=== PATIENT | female | born 1960 | race Caucasian/White ===

== ENCOUNTER 2017-05-14 17:06 | Emergency (ER) | payer OTHER ==
[2017-05-14 18:23] VITALS: BP 123/63
--- NOTE | 2017-05-14 18:25 | UC ---
Throat Pain/Nasal Nigel HPI - HPI Summary HPI Summary: 56 YEAR OLD FEMALE PRESENTS WITH COMPLAINS OF RED EYES AND SORE THROAT. - History of Current Complaint Chief Complaint: UCRespiratory Stated Complaint: SORE THROAT Time Seen by Provider: 05/14/17 18:25 Hx Obtained From: Patient Onset/Duration: Sudden Onset Severity: Moderate Pain Scale Used: 0-10 Numeric - 0 Cough: Nonproductive Associated Signs & Symptoms: Positive: Negative Related History: Seasonal Allergies - Epiglottits Risk Factors Epiglottis Risk Factors: Negative - Allergies/Home Medications Allergies/Adverse Reactions: Allergies Allergy/AdvReac Type Severity Reaction Status Date / Time Adhesive Tape Allergy Rash Verified 05/14/17 18:17 Latex Allergy Rash Verified 05/14/17 18:17 Home Medications: Home Medications ALPRAZolam TAB* [Xanax TAB*] 0.5 mg PO QID PRN 05/14/17 [History Confirmed 05/14] Budesonide/Formote 160/4.5(NF) [Symbicort 160/4.5 (NF)] 2 puff INH BID 05/14/17 [History Confirmed 05/14/17] Furosemide TAB* [Lasix TAB*] 20 mg PO DAILY 05/14/17 [History Confirmed 05/14/17 ] Magnesium Oxide TAB* [MagOx 400 TAB*] 400 mg PO DAILY 05/14/17 [History Confirmed 05/14/17] Omeprazole CAP* [Prilosec CAP* 20 MG] 40 mg PO DAILY 05/14/17 [History Confirmed 05/14/17] Telmisartan-Hydrochlorothiazid [Telmisartan/Hydrochloroth 80-12.5 mg] 1 tab PO DAILY 05/14/17 [History Confirmed 05/14/17] PMH/Surg Hx/FS Hx/Imm Hx Previously Healthy: Yes - Surgical History Surgical History: Yes Surgery Procedure, Year, and Place: knee callousing removal. c sections. small intestine removal and resecton. hernia repair 2013 - Social History Alcohol Use: None Substance Use Type: None Smoking Status (MU): Heavy Every Day Tobacco Smoker Type: Cigarettes Amount Used/How Often: 1 PPD Length of Time of Smoking/Using Tobacco: Since Age 19 Household Exposure Type: Cigarettes - Immunization History Most Recent Influenza Vaccination: Not the Season Review of Systems Constitutional: Negative Skin: Negative Eyes: Drainage, Eye Redness ENT: Sore Throat Respiratory: Negative Cardiovascular: Negative Gastrointestinal: Negative Genitourinary: Negative Motor: Negative Neurovascular: Negative Musculoskeletal: Negative Neurological: Negative Psychological: Negative All Other Systems Reviewed And Are Negative: Yes Physical Exam Triage Information Reviewed: Yes Vital Signs: Initial Vital Signs Temp 36.6 C 05/14/17 18:15 Pulse 106 05/14/17 18:15 Resp 16 05/14/17 18:15 BP 123/63 05/14/17 18:15 Pulse Ox 99 05/14/17 18:15 Vital Signs Reviewed: Yes Eye Exam: Normal ENT: Positive: Nasal congestion, Tonsillar swelling - LEFT Dental Exam: Normal Neck exam: Normal Neck: Positive: 1 Respiratory Exam: Normal Cardiovascular Exam: Normal Abdominal Exam: Normal Musculoskeletal Exam: Normal Neurological Exam: Normal Psychological Exam: Normal Skin Exam: Normal Throat Pain/Nasal Course/Dx - Differential Dx/Diagnosis Provider Diagnoses: SORE THROAT. BILATERAL CONJUNCTIVITIS Discharge - Discharge Plan Condition: Stable Disposition: HOME Prescriptions: Amoxicillin PO (*) [Amoxicillin 500 MG CAP*] 500 mg PO TID #30 cap LoraTADine TAB(NF) [Claritin 10 MG TAB(NF)] 10 mg PO DAILY #30 tab Magic M W2 [place]/Maal/Nyst/Lido* 5 ml SWISH SPIT QID PRN #120 ml PRN Reason: Sore Throat Methylprednisolone [Medrol Dosepak 4 MG*] 4 mg PO .SEE RUBI INSTRUCTION #21 tab Patient Education Materials: Pharyngitis (ED) Referrals: Samantha Eldridge MD [Primary Care Provider] -
== END 2017-05-14 19:02 | disposition home or self-care (01) ==
LOC: UCCORT 17:06
DX: H10.9 Unspecified conjunctivitis (principal); J02.9 Acute pharyngitis, unspecified; Z72.0 Tobacco use
CPT/HCPCS: 87651; 99212; G0463

== ENCOUNTER 2021-09-26 09:50 | Inpatient (IN) ==
[2021-09-26 10:57] LABS: PCO2 Arterial 35 mmHg (35-45); PO2 Arterial 76 mmHg (80-100)
[2021-09-26] MEDS ORDERED: NS 0.9% 1000 ml BAG 1,000 ML IV ONE (10:57)
[2021-09-26 11:00] LABS: Hematocrit 46 % (35-47); Hemoglobin 15.3 g/dL (12.0-16.0); Mean Corpuscular HGB Conc 33 g/dL (31-36); Mean Corpuscular Hemoglobin 30 pg (27-31); Mean Corpuscular Volume 89 fL (80-97); Mean Platelet Volume 9.3 fL (7.4-10.4); Platelet Count 338 10^3/uL (150-450); Red Blood Count 5.15 10^6 /uL (3.70-4.87); Red Cell Distribution Width 15 % (10-15); White Blood Count 28.8 10^3/uL (3.5-10.8)
[2021-09-26 11:02] LABS: ABS Basophils 0.1 10^3/ul (0-0.2); ABS Monocytes 2.3 10^3/ul (0-0.8); ABS Neutrophils 24.4 10^3/ul (1.5-7.7)
[2021-09-26 11:21] LABS: High Sens Troponin Baseline 110 pg/mL (<15)
[2021-09-26 11:51] LABS: ALT 34 U/L (7-52); AST 117 U/L (13-39); Albumin 4.4 g/dL (3.2-5.2); Albumin/Globulin Ratio 1.6 (1-3); Alkaline Phosphatase 85 U/L (35-149); Blood Urea Nitrogen 44 mg/dL (6-24); CO2 Carbon Dioxide 22 mmol/L (22-32); Calcium 8.4 mg/dL (8.6-10.3); Chloride 88 mmol/L (101-111); Globulin 2.7 g/dL (2-4); Glucose 444 mg/dL (70-100); Lipase 41 U/L (11.0-82.0); Sodium 135 mmol/L (135-145); Total Protein 7.1 g/dL (6.4-8.9); eGFR CKD-EPI 10.6 (>60)
[2021-09-26 11:55] LABS: TSH Ultra Thyroid Stim Horm 4.42 mcIU/mL (0.34-5.60)
[2021-09-26 12:09] LABS: Anion Gap 25 mmol/L (2-11); Creatine Kinase 13173 U/L (10-223); Magnesium < 0.5 mg/dL (1.9-2.7); Potassium 2.7 mmol/L (3.5-5.0)
[2021-09-26 12:26] LABS: High Sensitivity Troponin 1 Hr 97 pg/mL (<15)
[2021-09-26] MEDS ORDERED: KCL 20 MEQ/100 ML IVPREMIX 20 MEQ/100 ML BAG IV ONE (12:29)
[2021-09-26] MEDS ORDERED: Magnesium Sulfate 2 gm BAG 2 GM/50 ML BAG IVPB ONE (12:36)
[2021-09-26] MEDS ORDERED: NS 0.9% 500 ml BAG 500 ML IV ONE (12:37)
[2021-09-26 15:26] LABS: Magnesium 1.7 mg/dL (1.9-2.7)
[2021-09-26 15:27] LABS: Calcium 7.5 mg/dL (8.6-10.3); Potassium 2.8 mmol/L (3.5-5.0)
[2021-09-26 15:33] LABS: Urine Appearance Turbid; Urine Bilirubin Negative (Negative); Urine Blood 3+ (Negative); Urine Color Amber; Urine Glucose 1+(50 mg/dL) (Negative); Urine Ketones Trace (Negative); Urine Nitrite Negative (Negative); Urine Protein 2+(100 mg/dL) (Negative); Urine Urobilinogen Negative (Negative)
[2021-09-26 15:48] LABS: Urine Amorphous Crystals Present (Absent); Urine Bacteria 1+ (Absent); Urine Red Blood Cell 2+(6-10/hpf) (Absent); Urine Squamous Epithelial Cell Present (Absent); Urine White Blood Cell 2+(11-20/hpf) (Absent)
[2021-09-26] MEDS ORDERED: Magnesium Sulf 4 GM/100 ML IV 4,000 MG/100 ML BAG IVPB ONE (16:25)
[2021-09-26 16:54] LABS: C Reactive Protein 13.45 mg/L (<8.01)
[2021-09-26] MEDS ORDERED: Lactated Ringers 1000 ml BAG 1,000 ML IV SCH (17:00)
[2021-09-26] MEDS ORDERED: Dextrose 50% Syringe 50 ml 25 GM/50 ML SYRINGE IV PUSH PRN ×2 (17:02→19:07)
[2021-09-26] MEDS ORDERED: Albuterol/Ipratropium NEB.SOL (2.5/0.5 MG) 3 ML NEB.SOLN INH PRN (17:14)
[2021-09-26] MEDS ORDERED: cefTRIAXone 1 gm/50 mL D5W 1 GM/50 ML BAG IV SCH (17:15)
[2021-09-26] MEDS: KCL 20 MEQ/100 ML IVPREMIX 20 MEQ/100 ML BAG IV SCH ×2 (17:15→21:10)
[2021-09-26] MEDS ORDERED: Lactated Ringers 1000 ml BAG 1,000 ML IV ONE (17:57)
[2021-09-26] MEDS ORDERED: Potassium Chlor 20 meq TAB.ER PO ONE (18:49)
[2021-09-26 20:13] LABS: Osmolality Serum 302 mOsm/kg (275-295)
[2021-09-26 20:54] LABS: Calcium 7.7 mg/dL (8.6-10.3); Potassium 3.1 mmol/L (3.5-5.0); eGFR CKD-EPI 14.3 (>60)
[2021-09-26] MEDS: Heparin 5000 UNITS/ML 1 mL VIAL SUBCUT SCH (21:21)
[2021-09-26 22:24] LABS: Magnesium 2.8 mg/dL (1.9-2.7)
[2021-09-26] MEDS: Potassium Chloride IV 20 MEQ in Lactated Ringers 1000 ml BAG 1,000 ML IVPB SCH (23:30)
[2021-09-27] MEDS: KCL 20 MEQ/100 ML IVPREMIX 20 MEQ/100 ML BAG IV SCH ×2 (00:28→02:57)
[2021-09-27 01:32] LABS: Calcium 7.5 mg/dL (8.6-10.3); Potassium 3.2 mmol/L (3.5-5.0); eGFR CKD-EPI 17.8 (>60)
[2021-09-27] MEDS: Insulin GLARGINE 100 un/ml 10 ml VIAL SUBCUT SCH ×2 (01:58→21:24)
[2021-09-27 04:02] LABS: ABS Basophils 0.1 10^3/ul (0-0.2); ABS Eosinophils 0.1 10^3/ul (0-0.6); ABS Lymphocytes 2.2 10^3/ul (1.0-4.8); ABS Monocytes 1.4 10^3/ul (0-0.8); ABS Neutrophils 17.6 10^3/ul (1.5-7.7); Eosinophil % 0.4 %; Hematocrit 37 % (35-47); Hemoglobin 12.8 g/dL (12.0-16.0); Lymphocyte % 10.1 %; Mean Corpuscular HGB Conc 35 g/dL (31-36); Mean Corpuscular Hemoglobin 30 pg (27-31); Mean Corpuscular Volume 88 fL (80-97); Mean Platelet Volume 8.8 fL (7.4-10.4); Platelet Count 253 10^3/uL (150-450); Red Blood Count 4.21 10^6 /uL (3.70-4.87); Red Cell Distribution Width 15 % (10-15); White Blood Count 21.4 10^3/uL (3.5-10.8)
[2021-09-27 04:29] LABS: Albumin 3.5 g/dL (3.2-5.2); Albumin/Globulin Ratio 1.8 (1-3); Calcium 7.5 mg/dL (8.6-10.3); Calcium 7.6 mg/dL (8.6-10.3); Magnesium 3.7 mg/dL (1.9-2.7); Potassium 3.5 mmol/L (3.5-5.0); Total Bilirubin 0.6 mg/dL (0.2-1.0); Total Protein 5.5 g/dL (6.4-8.9); eGFR CKD-EPI 20.3 (>60)
[2021-09-27] MEDS: FLUTICAS/UMECLI/VILANT 200-62.5-25 MDI (NF) INH SCH (07:54)
[2021-09-27] MEDS: Potassium Chloride IV 20 MEQ in Lactated Ringers 1000 ml BAG 1,000 ML IVPB SCH ×4 (09:42→21:33)
[2021-09-27] MEDS: Heparin 5000 UNITS/ML 1 mL VIAL SUBCUT SCH (19:21)
[2021-09-27] MEDS: Calcium Carb (TUMS) 500 mg CHEW TAB PO SCH (21:24)
[2021-09-28] MEDS: Potassium Chloride IV 20 MEQ in Lactated Ringers 1000 ml BAG 1,000 ML IVPB SCH ×3 (03:17→12:04)
[2021-09-28 06:08] LABS: ABS Eosinophils 0.1 10^3/ul (0-0.6); ABS Lymphocytes 2.7 10^3/ul (1.0-4.8); ABS Monocytes 1.1 10^3/ul (0-0.8); ABS Neutrophils 9.9 10^3/ul (1.5-7.7); Eosinophil % 0.9 %; Hematocrit 30 % (35-47); Hemoglobin 10.1 g/dL (12.0-16.0); Lymphocyte % 19.8 %; Mean Corpuscular HGB Conc 34 g/dL (31-36); Mean Corpuscular Hemoglobin 30 pg (27-31); Mean Corpuscular Volume 90 fL (80-97); Mean Platelet Volume 9.4 fL (7.4-10.4); Platelet Count 197 10^3/uL (150-450); Red Blood Count 3.37 10^6 /uL (3.70-4.87); Red Cell Distribution Width 14 % (10-15); White Blood Count 13.8 10^3/uL (3.5-10.8)
[2021-09-28 06:26] LABS: Albumin 2.9 g/dL (3.2-5.2); Albumin/Globulin Ratio 1.6 (1-3); Calcium 7.3 mg/dL (8.6-10.3); Direct Bilirubin 0.1 mg/dL (0.03-0.18); Globulin 1.8 g/dL (2-4); Indirect Bilirubin 0.6 mg/dL (0.3-1.0); Magnesium 2.5 mg/dL (1.9-2.7); Potassium 3.7 mmol/L (3.5-5.0); Total Bilirubin 0.7 mg/dL (0.2-1.0); Total Protein 4.7 g/dL (6.4-8.9); eGFR CKD-EPI 51.3 (>60)
[2021-09-28] MEDS: FLUTICAS/UMECLI/VILANT 200-62.5-25 MDI (NF) INH SCH (07:53)
[2021-09-28] MEDS: Calcium Carb (TUMS) 500 mg CHEW TAB PO SCH ×2 (08:32→20:07)
[2021-09-28] MEDS ORDERED: Lactated Ringers 500 ml BAG 500 ML IV ONE (10:20)
[2021-09-28] MEDS: Lactated Ringers 1000 ml BAG 1,000 ML IV SCH ×3 (12:22→22:31)
[2021-09-28 16:56] LABS: Calcium 7.6 mg/dL (8.6-10.3); Potassium 3.7 mmol/L (3.5-5.0); eGFR CKD-EPI 46.2 (>60)
[2021-09-28] MEDS: Insulin GLARGINE 100 un/ml 10 ml VIAL SUBCUT SCH (20:07)
[2021-09-29] MEDS: Lactated Ringers 1000 ml BAG 1,000 ML IV SCH ×2 (04:15→10:11)
[2021-09-29 05:14] LABS: ABS Basophils 0.1 10^3/ul (0-0.2); ABS Eosinophils 0.2 10^3/ul (0-0.6); ABS Lymphocytes 2.5 10^3/ul (1.0-4.8); ABS Monocytes 0.9 10^3/ul (0-0.8); ABS Neutrophils 8.4 10^3/ul (1.5-7.7); Eosinophil % 1.3 %; Hematocrit 30 % (35-47); Lymphocyte % 21.2 %; Mean Corpuscular HGB Conc 33 g/dL (31-36); Mean Corpuscular Hemoglobin 30 pg (27-31); Mean Corpuscular Volume 90 fL (80-97); Mean Platelet Volume 9.3 fL (7.4-10.4); Platelet Count 196 10^3/uL (150-450); Red Blood Count 3.34 10^6 /uL (3.70-4.87); Red Cell Distribution Width 15 % (10-15)
[2021-09-29 05:44] LABS: Albumin/Globulin Ratio 1.7 (1-3); Calcium 7.9 mg/dL (8.6-10.3); Direct Bilirubin 0.1 mg/dL (0.03-0.18); Globulin 1.8 g/dL (2-4); Indirect Bilirubin 0.5 mg/dL (0.3-1.0); Magnesium 1.8 mg/dL (1.9-2.7); Potassium 3.8 mmol/L (3.5-5.0); Total Bilirubin 0.6 mg/dL (0.2-1.0); Total Protein 4.8 g/dL (6.4-8.9); eGFR CKD-EPI 63.7 (>60)
[2021-09-29] MEDS ORDERED: Magnesium Sulfate 2 gm BAG 2 GM/50 ML BAG IVPB ONE (06:21)
[2021-09-29] MEDS: FLUTICAS/UMECLI/VILANT 200-62.5-25 MDI (NF) INH SCH (07:25)
[2021-09-29] MEDS: Calcium Carb (TUMS) 500 mg CHEW TAB PO SCH (08:38)
[2021-09-29 10:59] VITALS: BP 152/54
[2021-09-29 13:25] LABS: Hepatitis B Surface Antigen Nonreactive (Nonreactive)
[2021-09-29 13:30] LABS: Hepatitis A Ab IgM Negative (Negative)
[2021-09-29 13:31] LABS: Hepatitis B Core IgM Nonreactive (Nonreactive)
[2021-09-29 13:42] LABS: Hepatitis C Antibody Negative (Negative)
[2021-09-30 15:44] LABS: JO-1 Antibody <0.2 U
[2021-09-30 19:45] LABS: Cyclic Citrullinated Pept IgG <15.6 U
== END 2021-09-29 13:05 | disposition home or self-care (01) | DRG 351 ==
LOC: ED 09:50 → EDHOLD 16:55 → SUATTDRO 16:55 → MED 18:36
PROVIDERS: ADMIT Internal Medicine; ATTEND Student in an Organized Health Care Education/Training Program